=== PATIENT | female | born 1985 | race African-American/Black ===

== ENCOUNTER 2022-03-13 12:32 | Emergency (ER) | payer SELFPAY ==
--- NOTE | ~2022-03-13 | XR_ITS ---
XR foot RT min 3V DATE: 03/13/2022 13:15 INDICATION: Pain and bump at distal fifth metatarsal area for 3 months TECHNIQUE: 4 views COMPARISON: None FINDINGS: No subcutaneous emphysema or radiopaque soft tissue foreign body. No fracture, dislocation, periosteal reaction or bone destruction. IMPRESSION: Negative Reviewed, dictated and finalized at location A. IMPRESSION: Negative
--- NOTE | 2022-03-13 12:34 | ED.URI ---
HPI - URI/Sore Throat General Chief Complaint: Upper Respiratory Infection Stated Complaint: Cough/Chest Congestion Time Seen by Provider: 03/13/22 12:34 Source: patient Mode of arrival: ambulatory Limitations: no limitations History of Present Illness HPI Narrative: Ms. Betancourt is a 36-year-old female patient presenting to the clinic today with complaints of cough and chest congestion x 3 weeks. She reports she recently came to [place] from [place]. She reports that her aunt tested positive recently for COVID. She reports a productive cough at times with yellow and green phlegm. History of asthma. Has been using her inhaler has helped some. Also reports some right lateral foot pain thinks that she may have a piece of metal in her foot. MD elicited complaint: sore throat and nasal congestion Related Data Home Medications Medication Instructions Recorded Confirmed albuterol sulfate 90 mcg/actuation 2 puff inhalation QID 03/13/22 03/13/22 aerosol inhaler Allergies Allergy/AdvReac Type Severity Reaction Status Date / Time benzonatate Allergy Rash Verified 03/13/22 12:52 [From Tessalmedina Johnson] [email or web address] [From Robitussin] Allergy Rash Verified 03/13/22 12:53 Review of Systems Review of Systems: Pertinent positives per HPI. Patient denies any fever, chills, rash, headache, visual changes, dizziness, chest pain, palpitations, nausea, vomiting, diarrhea, constipation, abdominal pain, or any urinary issues. PMFSH Comments At the time of my signature, I reviewed and agree with the nursing past medical, surgical, social, and family history. There is no relevant family history pertinent to the patient complaint. Exam Narrative: General: Well-developed, well nourished, in no apparent distress Head: Normocephalic, atraumatic Eyes: Pupils equally round and reactive to light bilaterally, EOM intact, sclera and conjunctive clear, no discharge, lids normal Ears: TMs intact and clear, ear canals clear, no drainage, grossly hearing normal. Nose: Nares patent, no discharge, no inflammation, no sinus tenderness. Mouth: Oral pharynx without lesions or masses, good dentition, MMM. Neck: Supple, trachea midline, no enlargement of anterior or posterior cervical nodes, no thyroid masses or goiter palpable. Cardio: Regular rate and rhythm, s1 and s2 normal, no murmur appreciated. Resp: Lung sounds clear but diminished in bases,, no rhonchi, rales, or rubs Musculoskeletal: No deformity, tender callus area to the right lateral foot, no redness or swelling noted, grossly normal range of motion, muscle strength strong and equal, peripheral pulse strong, no edema, no cyanosis, normal gait and station Course Course Emergency Course: Portions of this record may have been created with voice recognition software. Level of Care: Express Care Visit Vital Signs Vital signs: Vital Signs Temperature 37.2 C 03/13/22 12:47 Pulse Rate 103 H 03/13/22 12:47 Respiratory Rate 18 03/13/22 12:47 Blood Pressure 137/74 03/13/22 12:47 Pulse Oximetry 100 03/13/22 12:47 Oxygen Delivery Room Air 03/13/22 12:47 Temperature 37.2 C 03/13/22 12:47 Pulse Rate 103 H 03/13/22 12:47 Respiratory Rate 18 03/13/22 12:47 Blood Pressure 137/74 03/13/22 12:47 Pulse Oximetry 100 03/13/22 12:47 Oxygen Delivery Room Air 03/13/22 12:47 Vital signs reviewed MDM - URI/Sore Throat MDM Narrative Medical decision making narrative: At the time of assessment patient is resting comfortably on the exam table. Differential Diagnosis Differential diagnosis: Likely upper respiratory infection, otitis media, sinusitis, viral infection, bronchitis, influenza, pharyngitis and other (COVID) Imaging Data Radiologist's impression: [facility] [address] [place] [address] XRay Report Signed Patient: Kelin Raymundo : 1985 MR#: [id number] Age/Sex: 36 / F A
[2022-03-13 12:47] VITALS: BP 137/74; PULSE 103; RESP 18; TEMP 37.2; O2SAT 100
== END 2022-03-13 13:35 | disposition home or self-care (01) ==
PROVIDERS: Emergency Provider Nurse Practitioner Family
DX: J40 Bronchitis, not specified as acute or chronic (principal); L84 Corns and callosities; J45.909 Unspecified asthma, uncomplicated
CPT/HCPCS: 73630; 99213; G0463